=== PATIENT | female | born 1955 | race Caucasian/White ===

== ENCOUNTER → 2017-08-07 | Outpatient (CLI) | payer BC ==
--- NOTE | 2017-08-07 12:44 | KCIC ---
3 views lumbar spine radiograph 08/07/2017 CLINICAL INDICATION: Back pain and leg weakness. COMPARISON: None. FINDINGS: Neutral flexion and extension lateral views of the lumbar spine were submitted. There is mild grade 1 anterolisthesis likely at L4-L5, though numbering system is not definite due to lack of frontal view. There is no exacerbation of the listhesis on flexion or extension views. There is mild multilevel lumbar spondylosis with disc space narrowing and marginal osteophyte formation to a mild degree at L4-L5 and L5-S1. Lower lumbar facet hypertrophy. Calcified atheromatous disease of the abdominal aorta. IMPRESSION: 1. Lumbar numbering system is not definite due to lack of frontal view. 2. Grade 1 anterolisthesis, likely L4 on L5, with no exacerbation with flexion and extension views. 3. Lower lumbar spondylosis, as detailed. Electronically signed by: Harry Ham MD (08/07/2017 12:41 PM) [id number]
== END | disposition home or self-care (01) ==
LOC: KCIC 11:09
PROVIDERS: ATTEND Neurological Surgery
DX: M43.16 Spondylolisthesis, lumbar region (principal); M47.896 Other spondylosis, lumbar region
CPT/HCPCS: 72100

== ENCOUNTER → 2017-09-10 | Outpatient (CLI) | payer BC ==
[2017-09-10 15:40] LABS: ADD MAN DIFF? NO
[2017-09-10 15:41] LABS: BASO % 1 % (0-3); EOS # 0.1 x10^3/uL (0.0-0.7); EOS % 1 % (0-3); HEMATOCRIT 45.1 % (36.0-47.0); HEMOGLOBIN 14.9 g/dL (12.0-15.5); LYMPH # 1.8 x10^3/uL (1.0-4.8); LYMPH % 21 % (24-48); MEAN CORPUSCULAR HEMOGLOBIN 30 pg (25-35); MEAN CORPUSCULAR HGB CONC 33 g/dL (31-37); MEAN CORPUSCULAR VOLUME 92 fL (79-100); MONO % 11 % (0-9); NEUT # 5.8 x10^3uL (1.8-7.7); NEUT % 67 % (31-73); PLATELET COUNT 253 x10^3/uL (140-400); RED BLOOD COUNT 4.92 x10^6/uL (3.50-5.40); RED CELL DISTRIBUTION WIDTH 13.4 % (11.5-14.5); WHITE BLOOD COUNT 8.7 x10^3/uL (4.0-11.0)
[2017-09-10 15:58] LABS: PARTIAL THROMBOPLASTIN TIME 31 SEC (24-38)
[2017-09-10 16:06] LABS: ALBUMIN/GLOBULIN RATIO 1.1 (1.0-1.7); ALK PHOS 39 U/L (46-116); ALT (SGPT) 30 U/L (14-59); ANION GAP 10 (6-14); AST (SGOT) 20 U/L (15-37); BLOOD UREA NITROGEN 12 mg/dL (7-20); BUN/CREATININE RATIO 13 (6-20); CALCIUM 9.2 mg/dL (8.5-10.1); CARBON DIOXIDE 30 mmol/L (21-32); CHLORIDE 104 mmol/L (98-107); CREATININE 0.9 mg/dL (0.6-1.0); GLUCOSE 97 mg/dL (70-99); POTASSIUM 3.6 mmol/L (3.5-5.1); SODIUM 144 mmol/L (136-145); TOTAL BILIRUBIN 0.8 mg/dL (0.2-1.0); TOTAL PROTEIN 7.6 g/dL (6.4-8.2)
[2017-09-11 03:15] LABS: MRSA BY PCR Negative (Negative)
== END | disposition home or self-care (01) ==
LOC: SURGPAT 13:12
DX: Z01.818 Encounter for other preprocedural examination (principal); I10 Essential (primary) hypertension; Z79.01 Long term (current) use of anticoagulants
CPT/HCPCS: 36415; 80053; 85025; 85610; 85730; 87641; 93005

== ENCOUNTER 2017-09-20 07:23 | Inpatient (IN) | payer BC ==
[2017-09-17] MEDS: BACITRACIN 50,000 UNIT in IV NORMAL SALINE 1000ML BAG 1,000 ML IRR (06:00)
[~2017-09-20 07:23] MED LIST: HYDROmorphone 2 MG/ML VIAL IV; IV RINGERS,LACTATED 1000ML 1,000 ML IV; LIDOCAINE 1% PF 2 ML VIAL. ID; MORPHINE SULFATE 2 MG/ML DISP.SYRIN. IV; ONDANSETRON PF 4 MG/2 ML VIAL. IV; PROCHLORPERAZINE 10 MG/2 ML VIAL. IV; fentaNYL PF VIAL 100 MCG/2 ML VIAL IV
[2017-09-20] MEDS: IV RINGERS,LACTATED 1000ML 1,000 ML IV (08:52)
[2017-09-20] MEDS ORDERED: LIDOCAINE 2% PF Vial for OR 5 ML VIAL. (09:39)
[2017-09-20] MEDS ORDERED: ROCURONIUM 50 MG/5 ML VIAL. (09:39)
[2017-09-20] MEDS ORDERED: PROPOFOL 50 ML IV ×3 (09:39→17:14)
[2017-09-20] MEDS ORDERED: PHENYLEPHRINE 10 MG/ML VIAL. (09:39)
[2017-09-20] MEDS ORDERED: PROPOFOL 20 ML IV (09:39)
[2017-09-20] MEDS ORDERED: ONDANSETRON PF 4 MG/2 ML VIAL. (09:39)
[2017-09-20] MEDS ORDERED: REMIFENTANIL 2 MG VIAL. IV ×2 (09:39→14:13)
[2017-09-20] MEDS ORDERED: DEXAMETHASONE SOD PHOS 20 MG/5 ML VIAL. (09:39)
[2017-09-20] MEDS ORDERED: 0.9 % SODIUM CHLORIDE 50 ML VIAL. IJ ×2 (09:39→14:13)
[2017-09-20] MEDS ORDERED: MINERAL OIL/PETROLATUM,WHITE OPHTH OINT 3.5GM TUBE. (10:02)
[2017-09-20] MEDS ORDERED: DESFLURANE > 120 MINUTES IH (10:02)
[2017-09-20] MEDS ORDERED: ePHEDrine PF IN SALINE 50 MG/5 ML DISP.SYRIN IV (10:33)
[2017-09-20] MEDS ORDERED: PROPOFOL 100 ML IV (10:35)
[2017-09-20] MEDS: KETOROLAC 60 MG/2 ML INJ FOR OR. (12:22)
[2017-09-20] MEDS: BACITRACIN 50,000 UNIT in IV NORMAL SALINE 1000ML BAG 1,000 ML IRR (12:22)
[2017-09-20] MEDS: BUPIVAC MPF-EPI 0.75%-1:200000 30 ML VIAL. (12:22)
[2017-09-20] MEDS: THROMBIN TOPICAL 20,000 UNIT SPRAY.SYRN KIT TP (12:22)
[2017-09-20] MEDS: GELATIN SPONGE SIZE 100. (12:22)
[2017-09-20] MEDS ORDERED: 0.9 % SODIUM CHLORIDE 10 ML DISP.SYRIN. IV (14:45)
[2017-09-20] MEDS ORDERED: MAG HYDROX/ALUMINUM HYD/SIMETH 30 ML ORAL.SUSP PO (14:45)
[2017-09-20] MEDS ORDERED: diphenhydrAMINE 50 MG/ML VIAL IV (14:45)
[2017-09-20] MEDS ORDERED: ONDANSETRON PF 4 MG/2 ML VIAL. IV (14:45)
[2017-09-20] MEDS ORDERED: ACETAMINOPHEN 325 MG TABLET. PO (14:45)
[2017-09-20] MEDS ORDERED: oxyCODONE/APAP 5/325 1 TAB TABLET PO (14:45)
[2017-09-20] MEDS ORDERED: ZOLPIDEM 5 MG TABLET. PO (14:45)
[2017-09-20] MEDS ORDERED: fentaNYL PF VIAL 100 MCG/2 ML VIAL IV (14:45)
[2017-09-20] MEDS ORDERED: CALCIUM CARBONATE 500 MG TAB.CHEW PO (14:45)
[2017-09-20] MEDS ORDERED: diphenhydrAMINE HCL 25 MG CAPSULE PO (14:45)
[2017-09-20] MEDS ORDERED: MAGNESIUM HYDROXIDE 2,400 MG/30 ML ORAL.SUSP. PO (14:45)
[2017-09-20] MEDS ORDERED: fentaNYL PF VIAL 100 MCG/2 ML VIAL ×2 (17:40→18:13)
[2017-09-20] MEDS ORDERED: HYDROmorphone 2 MG/ML VIAL (18:13)
[2017-09-20] MEDS ORDERED: MORPHINE SULFATE 2 MG/ML DISP.SYRIN. (18:14)
[2017-09-20] MEDS: fentaNYL PF VIAL 100 MCG/2 ML VIAL IV ×6 (18:30→23:49)
[2017-09-20] MEDS: MORPHINE SULFATE 2 MG/ML DISP.SYRIN. IV ×2 (19:01→19:12)
[2017-09-20] MEDS: HYDROmorphone 2 MG/ML VIAL IV ×4 (19:21→19:57)
[2017-09-20] MEDS: oxyCODONE/APAP 5/325 1 TAB TABLET PO (20:00)
[2017-09-20] MEDS: METHOCARBAMOL 750 MG TABLET PO (21:32)
[2017-09-20] MEDS: DOCUSATE SODIUM 100 MG CAPSULE. PO (21:32)
[2017-09-20] MEDS: POTASSIUM CL 20MEQ D5-0.45NACL 1,000 ML IV (21:33)
[2017-09-20] MEDS ORDERED: ceFAZolin SODIUM 1 GM in IV DEXTROSE 5% 50 ML IV (22:00)
[2017-09-21] MEDS: oxyCODONE/APAP 5/325 1 TAB TABLET PO ×3 (02:15→10:48)
[2017-09-21] MEDS: fentaNYL PF VIAL 100 MCG/2 ML VIAL IV ×6 (02:17→17:18)
[2017-09-21] MEDS: POTASSIUM CL 20MEQ D5-0.45NACL 1,000 ML IV ×2 (03:55→16:44)
[2017-09-21] MEDS: DOCUSATE SODIUM 100 MG CAPSULE. PO (07:54)
[2017-09-21] MEDS: METHOCARBAMOL 750 MG TABLET PO ×2 (07:54→15:16)
[2017-09-21] MEDS ORDERED: oxyCODONE/APAP 7.5/325 1 TAB TABLET PO (11:45)
[2017-09-21] MEDS: oxyCODONE/APAP 7.5/325 1 TAB TABLET PO (17:18)
== END 2017-09-21 18:17 | disposition home or self-care (01) | DRG 460 ==
LOC: SURHIP 07:23 → 4 SOUTHWST 20:28
PROC: 01NB0ZZ Release Lumbar Nerve, Open Approach (ICD-10-PCS; principal; 2017-09-20 11:00)
PROC: 0SG0071 Fusion of Lumbar Vertebral Joint with Autologous Tissue Substitute, Posterior Approach, Posterior Column, Open Approach (ICD-10-PCS; 2017-09-20 11:00)
PROC: 01NR0ZZ Release Sacral Nerve, Open Approach (ICD-10-PCS; 2017-09-20 11:00)
PROC: 07DR3ZZ Extraction of Iliac Bone Marrow, Percutaneous Approach (ICD-10-PCS; 2017-09-20 11:00)
PROC: 4A11X4G Monitoring of Peripheral Nervous Electrical Activity, Intraoperative, External Approach (ICD-10-PCS; 2017-09-20 11:00)
DX: M43.16 Spondylolisthesis, lumbar region (principal); I10 Essential (primary) hypertension; M54.17 Radiculopathy, lumbosacral region; M48.062 Spinal stenosis, lumbar region with neurogenic claudication; M48.07 Spinal stenosis, lumbosacral region; Z82.49 Family history of ischemic heart disease and other diseases of the circulatory system; Z90.49 Acquired absence of other specified parts of digestive tract
CPT/HCPCS: 36415; 72131; 76000; 86850; 86900; 86901; 88304; 88311; 97110-GP; 97116-GP; 97162-GP; 97530-GP; C1713; G8978-CK-GP; G8979-CJ-GP; G8980-CI-GP; J0690; J1100; J1170; J1885; J2270; J2405; J2704; J3010; J3490; J7030; J7120